=== PATIENT | female | born 1980 | race American Indian/Alaskan Native ===

== ENCOUNTER 2016-12-15 19:44 | Emergency (ER) | payer MEDICAID ==
[2016-12-15 20:49] VITALS: BP 154/99
[2016-12-16 00:32] LABS: Bacteria,Urine 1+ /HPF (Negative); Bilirubin,Urine NEG (Negative); Blood,Urine NEG (Negative); Ketones,Urine NEG (Negative); Leukocyte Esterase,Urine NEG (Negative); Mucus,Urine FEW /HPF; Nitrite,Urine NEG (Negative); Urobilinogen,Urine < 2.0 mg/dL (<2.0)
== END 2016-12-16 02:20 | disposition left against medical advice (07) ==
LOC: ED 19:44
DX: M79.606 Pain in leg, unspecified (principal); M79.603 Pain in arm, unspecified; M54.9 Dorsalgia, unspecified; R11.2 Nausea with vomiting, unspecified; Z53.21 Procedure and treatment not carried out due to patient leaving prior to being seen by health care provider
CPT/HCPCS: 81001

== ENCOUNTER 2016-12-24 13:30 | Inpatient (IN) | payer MEDICAID ==
[2016-12-24] MEDS ORDERED: MAGNESIUM SULFATE 2GM/50ML 2 GM/50 ML BAG IV ONE (15:09)
[2016-12-24] MEDS ORDERED: BENADRYL IV ONE ×3 (15:09→17:22)
[2016-12-24] MEDS ORDERED: NACL 0.9% 1000 ML 1,000 ML IV ONE (15:09)
[2016-12-24] MEDS ORDERED: MORPHINE IV ONE ×2 (15:23→17:06)
[2016-12-24 16:28] LABS: Anion Gap 19 mmol/L; Blood Urea Nitrogen 14 mg/dL (7-17); Calcium 8.9 mg/dL (8.4-10.2); Carbon Dioxide 23 mmol/L (22-30); Chloride 93.7 mmol/L (98-107); Glucose 489 mg/dL (65-100); Potassium 4.4 mmol/L (3.6-5.0); Sodium 131 mmol/L (137-145)
[2016-12-24 16:33] LABS: Basophils % (Auto) 0.2 % (0.0-1.8); Eosinophils % (Auto) 1.6 % (0.0-4.3); Hematocrit 33.6 % (30.3-42.9); Hemoglobin 10.7 gm/dl (10.1-14.3); Mean Corpuscular HGB Conc 32 % (30-34); Mean Corpuscular Volume 79 fl (79-97); Platelet Count 257 K/mm3 (140-440); Red Blood Count 4.26 M/mm3 (3.65-5.03); Red Cell Distribution Width 15.7 % (13.2-15.2); White Blood Count 12.2 K/mm3 (4.5-11.0)
[2016-12-24] MEDS ORDERED: NACL ONE (16:34)
[2016-12-24 16:35] LABS: Alanine Aminotransferase 12 units/L (7-56); Albumin 3.8 g/dL (3.9-5); Alkaline Phosphatase 83 units/L (35-129); Bilirubin,Total < 0.2 mg/dL (0.1-1.2); Lipase 48 units/L (13-60); Magnesium 1.8 mg/dL (1.7-2.3); Phosphorous 2.6 mg/dL (2.5-4.5); Total Protein 7.7 g/dL (6.3-8.2)
[2016-12-24 16:37] LABS: Mean Corpuscular Hemoglobin 25 pg (28-32)
--- NOTE | 2016-12-24 16:41 | Emergency Department Report ---
ED Chest Pain HPI - General Chief Complaint: Chest Pain Stated Complaint: CHEST PAIN Time Seen by Provider: 12/24/16 14:35 Source: patient, EMS Mode of arrival: Stretcher Limitations: No Limitations - History of Present Illness Initial Comments: Patient with multiple complaints. She states that she has been short of breath with a white productive sputum for the past 3 days. She states her chest hurts when she coughs and she has some dyspnea on exertion. She has chest pain in the substernal region which does not radiate and is not associated with nausea vomiting or sweating. This chest pain is not pleuritic per se. She states that she does have some leg pain but has done no recent traveling. She has no history of VTE. She has no known history of coronary artery disease either. Apparently the patient has had a CTA performed at another facility. She describes the doctor having to put an IV in her neck and injecting contrast. Apparently this test was negative. She states that her grandmother had a DVT. She does not report any fever or chills. She states she's had a stress test in the past but it was many years ago. She denies previous cardiac catheterization. She has a history of hypertension and insulin-dependent diabetes. Apparently she is very familiar with pain medication and antiemetics. She is requesting Phenergan IV and stating multiple drug allergies. The patient is allergic to Toradol and ibuprofen. However she states that she can take aspirin without any problem. Complaint: chest pain -: days(s) Onset: during rest Pain Location: substernal Pain Radiation: none Severity: moderate Quality: dull Consistency: intermittent Improves With: nothing Worsens With: other (worse with cough but not frankly pleuritic) re: dyspnea. denies: nausea, vomting, diaphoresis Other Symptoms: cough Treatments Prior to Arrival: none Aspirin use within the Past 7 Days: (0) No - Related Data On Oral Contraceptives: No Home Medications Medication Instructions Recorded Confirmed Last Taken Insulin Aspart [NovoLOG Flexpen] 30 units SQ AC 05/31/15 05/31/15 05/31/15 Insulin Glargine,Hum.rec.anlog 0 units SQ QHS 05/31/15 05/31/15 05/30/15 [Lantus Solostar] Lisinopril [Zestril TAB] 40 mg PO QDAY 05/31/15 05/31/15 05/31/15 amLODIPine [Norvasc] 10 mg PO DAILY 05/31/15 05/31/15 05/31/15 Previous Rx's Medication Instructions Recorded Last Taken Type Fluconazole [Diflucan TAB] 150 mg PO ONCE #1 tablet 05/31/15 Unknown Rx HYDROcodone/APAP 5-325 [[place] 1 each PO Q6HR PRN #12 tablet 05/31/15 Unknown Rx 5/325] ALBUTEROL Inhaler [Proair] 2 puff IH QID PRN #1 inhalation 09/02/16 Unknown Rx Amoxicillin [Trimox CAP] 500 mg PO BID #14 capsule 09/02/16 Unknown Rx Benzonatate [Tessalon Perles] 100 mg PO Q8HR #30 capsule 09/02/16 Unknown Rx Promethazine /Codeine 5 ml PO Q6H PRN #100 ml 09/02/16 Unknown Rx [Phenergan/Codeine 6.25-10 mg/5Ml] Oxycodone HCl/Acetaminophen 1 each PO Q6HR PRN #20 tablet 09/10/16 Unknown Rx [Percocet 10/325 mg] Promethazine [Phenergan SUPPOS] 25 mg MI Q6HR PRN #14 supp.rect 09/10/16 Unknown Rx Promethazine [Phenergan TAB] 25 mg PO Q6HR PRN #20 tab 09/10/16 Unknown Rx Allergies Allergy/AdvReac Type Severity Reaction Status Date / Time ibuprofen Allergy Angioedema Verified 07/05/14 17:22 ketorolac tromethamine Allergy Angioedema Verified 07/05/14 17:22 [From Toradol] metoclopramide HCl Allergy Angioedema Verified 09/09/16 20:43 [From Reglan] ondansetron HCl Allergy Angioedema Verified 07/05/14 17:22 [From Zofran (as hydrochloride)] PRIMO score - Primo Score Age > 65: (0) No Aspirin use within the Past 7 Days: (0) No 3 or more CAD Risk Factors: (1) Yes 2 or more Angina events in past 24 hrs: (0) No Known CAD with more than 50% Stenosis: (0) No Elevated Cardiac Markers: (0) No ST Deviation Greater than 0.5mm: (0) No PRIMO Score: 1 ED Review of Systems ROS: Stated complaint: CHEST PAIN Other details as noted in HPI Constitutional: denies: chills, fever Eyes: denies: eye pain, eye discharge, vision change ENT: denies: ear pain, throat pain Respiratory: cough, shortness of breath. denies: wheezing Cardiovascular: chest pain. denies: palpitations Endocrine: no symptoms reported Gastrointestinal: denies: abdominal pain, nausea, diarrhea Genitourinary: denies: urgency, dysuria, discharge Musculoskeletal: denies: back pain, joint swelling, arthralgia Skin: denies: rash, lesions Neurological: denies: headache, weakness, paresthesias Psychiatric: denies: anxiety, depression Hematological/Lymphatic: denies: easy bleeding, easy bruising ED Past Medical Hx - Past Medical History Previous Medical History?: Yes Hx Hypertension: Yes Hx Diabetes: Yes Hx Renal Disease: Yes (Stage II Kidney Failure) Additional medical history: high cholest - Surgical History Past Surgical History?: Yes Additional Surgical History: stent to kidney. Csection x4 - Social History Smoking Status: Current Every Day Smoker Substance Use Type: None - Medications Home Medications: Home Medications Medication Instructions Recorded Confirmed Last Taken Type Fluconazole [Diflucan TAB] 150 mg PO ONCE #1 tablet 05/31/15 Unknown Rx HYDROcodone/APAP 5-325 [[place] 1 each PO Q6HR PRN #12 tablet 05/31/15 Unknown Rx 5/325] Insulin Aspart [NovoLOG Flexpen] 30 units SQ AC 05/31/15 05/31/15 05/31/15 History Insulin Glargine,Hum.rec.anlog 0 units SQ QHS 05/31/15 05/31/15 05/30/15 History [Lantus Solostar] Lisinopril [Zestril TAB] 40 mg PO QDAY 05/31/15 05/31/15 05/31/15 History amLODIPine [Norvasc] 10 mg PO DAILY 05/31/15 05/31/15 05/31/15 History ALBUTEROL Inhaler [Proair] 2 puff IH QID PRN #1 inhalation 09/02/16 Unknown Rx Amoxicillin [Trimox CAP] 500 mg PO BID #14 capsule 09/02/16 Unknown Rx Benzonatate [Tessalon Perles] 100 mg PO Q8HR #30 capsule 09/02/16 Unknown Rx Promethazine /Codeine 5 ml PO Q6H PRN #100 ml 09/02/16 Unknown Rx [Phenergan/Codeine 6.25-10 mg/5Ml] Oxycodone HCl/Acetaminophen 1 each PO Q6HR PRN #20 tablet 09/10/16 Unknown Rx [Percocet 10/325 mg] Promethazine [Phenergan SUPPOS] 25 mg MI Q6HR PRN #14 supp.rect 09/10/16 Unknown Rx Promethazine [Phenergan TAB] 25 mg PO Q6HR PRN #20 tab 09/10/16 Unknown Rx ED Physical Exam - General Limitations: No Limitations General appearance: other (appearance is somewhat cushingoid) - Head Head exam: Present: atraumatic, normocephalic - Eye Eye exam: Present: normal appearance. Absent: scleral icterus - ENT ENT exam: Present: mucous membranes moist - Neck Neck exam: Present: normal inspection. Absent: tenderness, meningismus - Respiratory Respiratory exam: Present: normal lung sounds bilaterally. Absent: respiratory distress - Cardiovascular Cardiovascular Exam: Present: normal rhythm, tachycardia - GI/Abdominal GI/Abdominal exam: Present: soft, normal bowel sounds. Absent: distended, tenderness, guarding, rebound, rigid - Extremities Exam Extremities exam: Present: normal inspection, other (the right calf is a bit zaragoza than the left calf but it is not significantly tender) - Back Exam Back exam: Present: normal inspection. Absent: CVA tenderness (R), CVA tenderness (L) - Neurological Exam Neurological exam: Present: alert, oriented X3, CN II-XII intact. Absent: motor sensory deficit - Psychiatric Psychiatric exam: Present: anxious, flat affect - Skin Skin exam: Present: warm, dry, intact, normal color. Absent: rash ED Course Vital Signs 12/24/16 14:07 Temperature 98.6 F Pulse Rate 106 H Respiratory 20 Rate Blood Pressure 147/87 O2 Sat by Pulse 98 Oximetry - Reevaluation(s) Reevaluation #1: The patient's d-dimer came back significantly elevated. She has multiple risk factors for coronary artery disease and ulnar embolism. It was decided to treat her empirically. Intravenous access for CTA is not currently possible. A nuclear medicine study was obtained. This should be a sensitive exam considering her normal chest x-ray. She was given antiemetics fluids insulin and analgesia. She will be admitted by Dr. Barbosa to the hospitalist service further care and evaluation. Her EKG is not suggestive of acute ischemia. She is somewhat tachycardic at this juncture but her pulse oximetry is well maintained. 12/24/16 17:42 ED Medical Decision Making - Lab Data Result diagrams: 12/24/16 15:08 12/24/16 15:08 Laboratory Results - last 24 hr 12/24/16 12/24/16 12/24/16 15:08 15:08 15:54 WBC 12.2 H RBC 4.26 Hgb 10.7 Hct 33.6 MCV 79 MCH 25 L MCHC 32 RDW 15.7 H Plt Count 257 Lymph % (Auto) 15.1 Ida % (Auto) 5.3 Eos % (Auto) 1.6 Baso % (Auto) 0.2 Lymph # 1.8 Ida # 0.6 Eos # 0.2 Baso # 0.0 Seg Neutrophils % 77.8 H Seg Neutrophils # 9.5 H VBG pH Sodium 131 L Potassium 4.4 Chloride 93.7 L Carbon Dioxide 23 Anion Gap 19 BUN 14 Creatinine 1.0 Estimated GFR > 60 BUN/Creatinine Ratio 14.00 Glucose 489 H Lactic Acid Calcium 8.9 Phosphorus 2.6 Magnesium 1.8 Total Bilirubin < 0.2 AST 11 ALT 12 Alkaline Phosphatase 83 Troponin T < 0.010 NT-Pro-B Natriuret Pep 54.33 Total Protein 7.7 Albumin 3.8 L Albumin/Globulin Ratio 1.0 Lipase 48 12/24/16 12/24/16 15:54 15:54 WBC RBC Hgb Hct MCV MCH MCHC RDW Plt Count Lymph % (Auto) Ida % (Auto) Eos % (Auto) Baso % (Auto) Lymph # Ida # Eos # Baso # Seg Neutrophils % Seg Neutrophils # VBG pH 7.386 Sodium Potassium Chloride Carbon Dioxide Anion Gap BUN Creatinine Estimated GFR BUN/Creatinine Ratio Glucose Lactic Acid 2.1 H* Calcium Phosphorus Magnesium Total Bilirubin AST ALT Alkaline Phosphatase Troponin T NT-Pro-B Natriuret Pep Total Protein Albumin Albumin/Globulin Ratio Lipase - EKG Data EKG shows normal: sinus rhythm, axis, intervals, QRS complexes, ST-T waves Rate: tachycardia (heart rate 102) - EKG Data Interpretation: nonspecific ST-T wave margie - Radiology Data interpreted by me: Chest x-ray not indicative of evident pathology Critical care attestation.: If time is entered above; I have spent that time in minutes in the direct care of this critically ill patient, excluding procedure time. ED Disposition Clinical Impression: Elevated lactic acid level, Elevated d-dimer Chest pain Qualifiers: Chest pain type: unspecified Qualified Code(s): R07.9 - Chest pain, unspecified Hyperglycemia due to type 2 diabetes mellitus Qualifiers: Diabetes mellitus terminal worker insulin use: with custodial use Qualified Code(s): E11.65 - Type 2 diabetes mellitus with hyperglycemia; Z79.4 - prison (current ) use of insulin Disposition: OP ADMITTED IP TO THIS HOSP Is pt being admited?: Yes Does the pt Need Aspirin: Yes Condition: Stable Instructions: Chest Pain (ED), Diabetes Mellitus Type 2 in Adults (ED) Referrals: PRIMARY CARE, [Primary Care Provider] - 3-5 Days Time of Disposition: 17:44
[2016-12-24 16:44] LABS: Bilirubin,Direct < 0.2 mg/dL (0-0.2); INR 0.91 (0.87-1.13); Partial Thromboplastin Time 25.1 Sec. (24.2-36.6)
[2016-12-24] MEDS ORDERED: LEVAQUIN 500MG/100ML 500 MG/100 ML BAG IV ONE (16:49)
--- NOTE | 2016-12-24 16:55 | XRay Report ---
PORTABLE CHEST INDICATION: Hypertension. COMPARISON: 09/02/2016 FINDINGS: Portable, frontal chest radiograph demonstrates normal cardiomediastinal silhouette and clear lungs, given the inspiration. No pleural effusions or CHF. EKG leads. Intact bones. CONCLUSION: No acute disease. Thank you for the opportunity to participate in this patient's care.
[2016-12-24] MEDS ORDERED: BENADRYL ONE (17:13)
[2016-12-24] MEDS ORDERED: ATIVAN IV ONE (17:15)
[2016-12-24] MEDS ORDERED: LOVENOX SUB-Q ONE ×2 (17:16→18:00)
[2016-12-24] MEDS ORDERED: BABY ASPIRIN PO ONE (17:39)
[2016-12-24 17:44] LABS: Bacteria,Urine 1+ /HPF (Negative); Bilirubin,Urine NEG (Negative); Blood,Urine NEG (Negative); Ketones,Urine NEG (Negative); Leukocyte Esterase,Urine NEG (Negative); Mucus,Urine FEW /HPF; Nitrite,Urine NEG (Negative); Protein,Urine <15 mg/dL mg/dL (Negative); Urobilinogen,Urine < 2.0 mg/dL (<2.0)
[2016-12-24 17:59] LABS: Urine Drugs of Abuse Note Disclamer
--- NOTE | 2016-12-24 18:40 | History and Physical Report ---
History of Present Illness Chief complaint: I have pain in my chest History of present illness: 36 YO Female with HTN, DM, Metabolic Syndrome, Morbid Obesity, CKD 2, HLD, Nicotine Dependence presents to ED for evaluation. Pt states that she has been experiencing pain in her chest for the past 3 days. Pain is 4/10, substernal, nonradiating, no exacerbating or alleviating factors, intermittent. Pain is associated with coughing. Pt evaluated for PE and found to have negative CTA chest. Pt denies fever, chills, NVD, syncope, hemoptysis, prolonged travel/ immobility, individual/family history of DVT/PE, productive cough, or recent ill contacts. Past History Past Medical History: diabetes, hypertension, hyperlipidemia, renal failure Past Surgical History: , Other (renal stent placement) Social history: single, smoking. denies: alcohol abuse, prescription drug abuse Family history: diabetes, hypertension Medications and Allergies Allergies Allergy/AdvReac Type Severity Reaction Status Date / Time ibuprofen Allergy Angioedema Verified 07/05/14 17:22 ketorolac tromethamine Allergy Angioedema Verified 07/05/14 17:22 [From Toradol] metoclopramide HCl Allergy Angioedema Verified 09/09/16 20:43 [From Reglan] ondansetron HCl Allergy Angioedema Verified 07/05/14 17:22 [From Zofran (as hydrochloride)] levofloxacin [From Levaquin] AdvReac Nausea Verified 12/24/16 19:14 Home Medications Medication Instructions Recorded Confirmed Last Taken Type Insulin Glargine,Hum.rec.anlog 40 units SQ QHS 05/31/15 12/25/16 05/30/15 History [Lantus Solostar] Lisinopril [Zestril TAB] 40 mg PO QDAY 05/31/15 12/25/16 05/31/15 History amLODIPine [Norvasc] 10 mg PO DAILY 05/31/15 12/25/16 05/31/15 History ALBUTEROL Inhaler [Proair] 2 puff IH QID PRN #1 inhalation 09/02/16 12/25/16 Unknown Rx Insulin Regular, Human [HumuLIN R] 30 unit SQ AC 12/25/16 12/25/16 Unknown History cloNIDine [Catapres] 0.2 mg PO BID 12/25/16 12/25/16 Unknown History diphenhydrAMINE [Benadryl CAP] 25 mg PO QHS PRN 12/25/16 12/25/16 Unknown History Active Meds: Active Medications Sodium Chloride (Nacl 0.9% 1000 Ml) 1,000 mls @ 125 mls/hr IV ONCE ONE Stop: 12/24/16 23:08 Last Admin: 12/24/16 15:26 Dose: 125 mls/hr Review of Systems All systems: negative Cardiovascular: chest pain Exam - Constitutional Vitals: Temp Pulse Resp BP Pulse Ox 98.6 F 100 H 18 154/92 100 12/24/16 14:07 12/24/16 16:42 12/24/16 16:42 12/24/16 16:42 12/24/16 16:42 General appearance: Present: obese - EENT Eyes: Present: PERRL ENT: hearing intact, clear oral mucosa - Neck Neck: Present: supple, normal ROM - Respiratory Respiratory effort: normal Respiratory: bilateral: CTA - Cardiovascular Heart Sounds: Present: S1 & S2. Absent: rub, click - Extremities Extremities: pulses symmetrical, No edema Peripheral Pulses: within normal limits - Abdominal General gastrointestinal: Present: soft, non-tender, non-distended, normal bowel sounds Female genitourinary: Present: normal - Integumentary Integumentary: Present: clear, warm, dry - Musculoskeletal Musculoskeletal: gait normal, strength equal bilaterally - Psychiatric Psychiatric: appropriate mood/affect, intact judgment & insight - Neurologic Neurologic: CNII-XII intact, moves all extremities Results - Labs CBC & Chem 7: 12/24/16 15:08 12/24/16 15:08 Labs: Abnormal lab results 12/24/16 12/24/16 12/24/16 Range/Units 15:08 15:08 15:54 WBC 12.2 H (4.5-11.0) K/mm3 MCH 25 L (28-32) pg RDW 15.7 H (13.2-15.2) % Seg Neutrophils % 77.8 H (40.0-70.0) % Seg Neutrophils # 9.5 H (1.8-7.7) K/mm3 D-Dimer 928.63 H (0-234) ng/mlDDU Sodium 131 L (137-145) mmol/L Chloride 93.7 L (98-107) mmol/L Glucose 489 H (65-100) mg/dL Lactic Acid (0.7-2.0) mmol/L Albumin (3.9-5) g/dL 12/24/16 12/24/16 Range/Units 15:54 15:54 WBC (4.5-11.0) K/mm3 MCH (28-32) pg RDW (13.2-15.2) % Seg Neutrophils % (40.0-70.0) % Seg Neutrophils # (1.8-7.7) K/mm3 D-Dimer (0-234) ng/mlDDU Sodium (137-145) mmol/L Chloride (98-107) mmol/L Glucose (65-100) mg/dL Lactic Acid 2.1 H* (0.7-2.0) mmol/L Albumin 3.8 L (3.9-5) g/dL Assessment and Plan - Patient Problems (1) Chest pain Current Visit: Yes Status: Acute Qualifiers: Chest pain type: unspecified Qualified Code(s): R07.9 - Chest pain, unspecified Plan to address problem: Chest Pain protocol: serial cardiac enzymes, ekg, telemetry, echo, stress test (2) Accelerated hypertension Current Visit: Yes Status: Acute Plan to address problem: Monitor BP q shift, continue current antihypertensive therapy (3) Diabetes Current Visit: Yes Status: Acute Qualifiers: Diabetes mellitus type: D Diabetes mellitus complication status: D Diabetes mellitus complication detail: D Diabetic retinopathy severity: D Proliferative retinopathy type: P Diabetes mellitus macular edema: D Diabetes mellitus termite renewal inspector insulin use: D Laterality: L Chronic kidney disease stage: C Plan to address problem: ADA diet, insulin, accu check (4) Morbid obesity Current Visit: Yes Status: Acute Qualifiers: Obesity type: O Plan to address problem: Pt counseled. discussed balanced diet, increased physical activity, bariatric surgery as outpatient (5) Elevated d-dimer Current Visit: Yes Status: Acute Plan to address problem: VQ scan, (6) DVT prophylaxis Current Visit: Yes Status: Acute
[2016-12-24] MEDS ORDERED: TYLENOL PO PRN (18:44)
[2016-12-24] MEDS ORDERED: DULCOLAX PR PRN (18:44)
[2016-12-24] MEDS ORDERED: MILK OF MAGNESIA PO PRN (18:44)
[2016-12-24] MEDS ORDERED: ZOFRAN IV PRN (18:44)
[2016-12-24] MEDS ORDERED: ROCEPHIN/NS 1 GM/50 ML 1 GM/50 ML BAG IV ONE (18:45)
[2016-12-24] MEDS ORDERED: SODIUM CHLORIDE FLUSH SYRINGE 10 ML IV PRN (18:46)
[2016-12-24] MEDS ORDERED: PROAIR IH PRN (18:47)
[2016-12-24] MEDS ORDERED: NON-FORMULARY (Oxycodone Hcl/Acetaminophen [Percocet 10/325 Mg] 1 EACH) PO PRN (18:47)
--- NOTE | 2016-12-24 19:02 | Admit Criteria Form ---
Admission Criteria Documentation: CARDIOLOGY GRG Clinical Indications for Admission to Inpatient Care ( Place 'X' for any and all applicable criteria): Hospital admission is needed for appropriate care of the patient because of ANY ONE of the following (1): [ ] I. Hemodynamic instability as indicated by ALL of the following (1)(2)(3) (4)(5) [ ]a) Vital signs or other findings not as expected for chronic patient condition or baseline [ ]b) Instability indicated by ANY ONE of the following: [ ]i) Hypotension [ ]ii) Symptomatic Tachycardia unresponsive to treatment ( e.g., analgesia, fluids, sedation as indicated) [ ]iii) Inadequate perfusion indicated by ANY ONE of the following: [ ] 1) Lactic acidosis (> 2 mmol/L) [ ] 2) New abnormal capillary refill (> 3 seconds) [ ] 3) Reduced urine output [ ] 4) New altered mental status [ ]iv) Orthostatic vital sign changes unresponsive to treatment (e.g., fluids) [ ]v) IV inotropic or vasopressor medication required to maintain adequate blood pressure or perfusion [ ] II. Severe heart failure as indicated by ANY ONE of the following(17)(18) [ ]a) Respiratory distress [ ]b) Hypotension [ ]c) Anasarca (refractory to outpatient therapy) [ ]d) Cardiac arrhythmias of immediate concern [ ]e) Myocardial ischemia [ ] III. Cardiac arrhythmias or findings of immediate concern indicated by ANY ONE of the following (19)(20): [ ] a) Heart rhythms that are inherently dangerous or unstable indicated by ANY ONE of the following (21)(22)(23): [ ] i) Resuscitated ventricular fibrillation or cardiac arrest [ ] ii) Ventricular escape rhythm [ ] iii) Sustained ventricular tachycardia (30 seconds or more of ventricular rhythm at greater than 100 beats per minute) [ ] iv) Nonsustained ventricular tachycardia and ANY ONE of the following: [ ] 1) Suspected cardiac ischemia as cause or consequence of ventricular tachycardia [ ] 2) In setting of acute myocarditis [ ] b) Unstable cardiac conduction defects indicated by ANY ONE of the following(23)(24)(25) [ ] i) Type II second-degree atrioventricular block [ ]ii) Third-degree atrioventricular block [ ]iii) New-onset left bundle branch block with suspected myocardial ischemia [ ]c) Any heart rhythm and ANY ONE of the following (21)(22)(26)(27) (28) [ ] i) Continuous long-term ECG monitoring needed (e.g., initiation of drug requiring monitoring for more than 24 hours) [ ] ii) Patient has automatic implanted cardioverter defibrillator that is repeatedly firing, malfunctioning, or in need of immediate adjustment of settings beyond the scope of ambulatory or observation care [ ]d) Heart rhythms of concern due to ANY ONE of the following: [ ] i) Hypotension [ ] ii) Respiratory distress [ ] iii) Association with other significant symptoms (e.g., bradycardia with syncope or ongoing dizziness, supraventricular tachycardia with chest pain (14)(15)(17) [ ] IV. Monitoring for cardiac contusion beyond the scope of observation care needed [A](30)(31)(32) [ ] V. Surgical or device complication (e.g., valve replacement complication , pacemaker dysfunction) (35)(41)(44)(45)(46) [ ] . Inpatient palliative care needed. [B](49) Also use Inpatient Palliative Care Criteria [ ] VII. Nonbacterial thrombotic (marantic) endocarditis (36)(43)(47)(48) [X] VIII. Cardiology condition, symptom, or finding for which emergency and observation care has failed or are not considered appropriate. [ ] IX. Acute valvular disease requiring inpatient as indicated by ANY ONE of the following (41) [ ]a) Acute valvular regurgitation (42) [ ]b) Noninfectious valvulitis (43) [ ]c) Obstructive valve thrombosis [ ]d) Paravalvular leak [ ]e) Other significant valvular disorder remaining after emergency or observation level of care (as appropriate) [ ]X. Pericardial disease requiring inpatient treatment as indicated by ANY ONE of the following (33)(34)(35)(36)(37) [ ]a) Suspected tamponade (38)(39)(40) [ ]b) Hemopericardium [ ]c) Other significant pericardial disorder remaining after emergency or observation level of care (as appropriate) [ ] XI. Cardiac ischemia beyond scope of emergency and observation care. [ ] XII. Hypertension requiring inpatient treatment as indicated by ANY ONE of the following (6)(7)(8) [ ]a) SBP greater than 220 mm Hg or DBP greater than 120 mmHg despite treatment [ ]b) SBP greater than 140 mm Hg or DBP greater than 100 mm Hg with evidence of acute end organ damage as indicated by ANY ONE of the following [ ] i) Altered mental status [ ] ii) Acute renal failure as indicated by new onset of ANY ONE of the following (9)(10)(11)(12)(13) [ ]1) 3-fold rise in serum creatinine from baseline [ ]2) Serum creatinine greater than 4 mg/dL ( 354 micromoles/L) with acute rise greater than 0.5 mg/dL (44.2 micromoles/L) [ ]3) Reduction of more than 75% in estimated glomerular filtration rate from baseline [ ]4) Estimated glomerular filtration rate less than 35 mL/min/1.73m2 (0.59 mL/sec/1.73m2) in child up to 18 years of age [ ]5) Cessation of urine output indicated by ALL of the following [ ]A. Adequate volume status [ ]B. Inadequate urine output as indicated by ANY ONE of the following [ ]a. Urine output less than 0.3 mL/kg/hr for 24 hours [ ]b. Anuria (urine output less than 0.1 mL/kg/hr) for 12 hours [ ] iii) Aortic dissection [ ] iv) Myocardial Ischemia [ ] v) Left ventricular heart failure [ ]vi) Retinal Hemorrhage [ ]vii) Other significant finding [ ]c) Hypertension in child requiring inpatient treatment as indicated by ALL of the following(14)(15)(16) [ ] i) Outpatient treatment not effective, not available, or not appropriate [ ]ii) SBP or DBP greater than 95th percentile for age [ ]iii) Evidence of acute end organ damage as indicated by ANY ONE of the following [ ]1) Altered mental status [ ]2) Acute renal failure as indicated by new onset of ANY ONE of the following(9)(10)(11)(12)(13) [ ]A. 3-fold rise in serum creatinine from baseline [ ]B. Serum creatinine greater than 4 mg/dL (354 micromoles/L) with acute rise greater than 0.5 mg/dL (44.2 micromoles/L) [ ]C. Reduction of more than 75% in estimated glomerular filtration rate from baseline [ ]D. Estimated glomerular filtration rate less than 35 mL/min/1.73m2 (0.59 mL/sec/1.73m2) in child up to 18 years of age [ ]E. Cessation of urine output indicated by ALL of the following [ ]a. Adequate volume status [ ]b. Inadequate urine output as indicated by ANY ONE of the following [ ]i) Urine output less than 0.3 mL/kg/hr for 24 hours [ ]ii) Anuria ( urine output less than 0.1 mL/kg/hr) for 12 hours [ ]3) Severe headache [ ]4) Visual disturbance [ ]5) Retinal hemorrhage [ ]6) Other significant finding [ ]XIII. Complications of transplanted heart indicated by ANY ONE of the following(61): [ ]a) Acute graft rejection requiring inpatient management (eg, intravenous immunosuppression)(62)(63) [ ]b) Acute graft heart failure indicated by ANY ONE of the following(64): [ ]i) Hemodynamic instability [ ]ii) Cardiac arrhythmias of immediate concern [ ]iii) Pulmonary edema that is very severe (eg, mechanical ventilation needed, imminent or likely, need for 100% oxygen to keep oxygen saturation above 90%) [ ]iv) Pulmonary edema that is persistent as indicated by ALL of the following: [ ]1) New need for oxygen therapy to keep oxygen saturation above 90% (or increased FiO2 need from baseline) [ ]2) Has not improved sufficiently with emergency department or observation care IV diuretics or other heart failure treatments[E] [ ]v) Altered mental status that is severe or persistent [ ]vi) Increased creatinine (new on laboratory test) with reduction of more than 50% in estimated glomerular filtration rate from baseline [ ]vii) Progressively (ongoing) rising creatinine (known from past laboratory test) with reduction of more than 25% in estimated glomerular filtration rate from baseline [ ]viii) Acute renal failure [ ]ix) Acute peripheral ischemia (eg, examination shows pulseless, cool, mottled, or cyanotic extremity) [ ]x) Pulmonary artery catheter monitoring needed [ ]xi) Other sign or symptom of heart failure requiring inpatient treatment (ie, too severe or not responsive to outpatient and observation care treatment) [ ]c) Infection requiring inpatient management (eg, Hemodynamic instability, need for intravenous antimicrobial treatment)(66)(67)(68)(69)(70) [ ]d) Cardiac allograft vasculopathy requiring inpatient management ( eg evidence of cardiac ischemia)(71) [ ]e) Other complication of transplanted heart (eg, stroke, severe pulmonary hypertension, severe valvular dysfunction) requiring inpatient management(72) The original [facility] [employer] content created by [facility] has been revised. The portions of the content which have been revised are identified through the use of italic text or in bold, and [facility] has neither reviewed nor approved the modified material. All other unmodified content is copyright [facility] [employer]. Please see references footnoted in the original [facility] [employer] edition 2016 Admission Criteria Met: Yes
--- NOTE | 2016-12-24 19:23 | Nuclear Medicine Report ---
FINAL REPORT PROCEDURE: NM LUNG SCAN PERF/VENT TECHNIQUE: Five mCi Tc-99m MAA was injected IV for pulmonary perfusion imaging in multiple projections. Fifteen mCi XE_133 aerosol was inhaled for pulmonary ventilation imaging in multiple projections. Injection site: RIGHT antecubital fossa. CPT 31564 REGULATORY GUIDELINES: The patient was released based upon regulatory guidelines. HISTORY: Chest pain. COMPARISON: Chest radiograph dated 12/24/2016 FINDINGS: Perfusion: Uncertain whether related to patient positioning, moderate mismatch defect in the left lower lobe. Ventilation: Mild bibasilar air trapping. IMPRESSION: Possible moderate mismatch defect in the left lower lobe, V/Q scan intermediate probability for pulmonary embolism. Consider CT pulmonary embolism protocol for further characterization if there is continued clinical concern and if patient has no contraindication to intravenous contrast. Mild bibasilar air trapping.
[2016-12-24] MEDS ORDERED: PROVENTIL IH PRN (19:33)
[2016-12-24] MEDS ORDERED: PROVENTIL IH SCH (20:00)
[2016-12-24] MEDS ORDERED: PERCOCET 5/325 ONE (20:52)
[2016-12-24] MEDS: PERCOCET 5/325 PO PRN (20:58)
[2016-12-24] MEDS: NORCO 5/325 PO PRN (22:47)
[2016-12-24] MEDS: TESSALON PERLES PO SCH (22:47)
[2016-12-24] MEDS: PHENERGAN PO PRN (22:47)
[2016-12-24 22:49] LABS: Creatine Kinase 291 units/L (30-135); Creatine Kinase MB 2.9 ng/mL (0.0-4.0)
[2016-12-24] MEDS: HABITROL TD SCH (23:50)
[2016-12-25] MEDS: ROXICODONE PO PRN ×3 (01:53→17:53)
[2016-12-25] MEDS: PERCOCET 5/325 PO PRN ×3 (01:59→17:53)
[2016-12-25 02:32] LABS: Creatine Kinase MB 2.7 ng/mL (0.0-4.0)
[2016-12-25 02:33] LABS: Creatine Kinase 280 units/L (30-135)
[2016-12-25] MEDS: TESSALON PERLES PO SCH ×3 (05:21→22:12)
[2016-12-25] MEDS: NORCO 5/325 PO PRN ×3 (05:21→22:12)
[2016-12-25] MEDS: PHENERGAN PO PRN ×2 (05:21→22:12)
[2016-12-25] MEDS ORDERED: INSULIN ASPART 30 UNIT SQ SCH (07:30)
[2016-12-25] MEDS: NOVOLOG SUB-Q SCH ×3 (07:30→18:37)
[2016-12-25] MEDS ORDERED: NACL ONE ×3 (11:13→11:32)
--- NOTE | 2016-12-25 11:58 | Cat Scan Report ---
CTA chest: PE protocol. History: Elevated d-dimer. Findings: No evidence of aortic aneurysm or pulmonary embolism. No pleural or pericardial effusion. Normal lung parenchyma. No discrete nodularity or consolidation. Impression: No evidence of pulmonary embolism. No acute lung changes.
[2016-12-25] MEDS: ZESTRIL PO SCH (12:03)
[2016-12-25] MEDS: NORVASC PO SCH (12:03)
[2016-12-25] MEDS: MORPHINE IV PRN ×2 (13:47→20:36)
--- NOTE | 2016-12-25 14:17 | Progress Note ---
Assessment and Plan Assessment and plan: Patient is 1-year-old woman history of diabetes mellitus on insulin, hypertension, morbid obesity BMI 44.5 and significant plaque psoriasis who presented with chest pains. She underwent a VQ scan because unable to get IV line in the proper place for CTA of the chest because d-dimer was significantly elevated. Since she had a VQ scan she cannot undergo a nuclear stress test today. She had CTA of the chest which was negative for PE and acute lung disease. 2-D echo shows trace TR, severe concentric left ventricular hypertrophy , estimated EF 65-70% and abnormal diastolic filling is observed, consistent with impaired relaxation and Normal right chamber and function. - Low back pain: Check MRI of the LS-spine - Chest pain reproducible was like muscle skeletal - Significant plaque psoriasis, was on Otezla but not working, Humira going to be started soon per patient, which i believe will improve arthralgias - Diabetes mellitus: Continue present management MRI pending LS spine If Stress test negative tomorrow then discharged History Interval history: Patient seen and examined. Follow up on low back pain and difficulty walking. She is asking for something stronger for pain. Overnight uneventful. No cp, sob , n/v or severe headaches. Imaging, old records, testing, labs, nursing notes reviewed. Plan discussed with patient. Hospitalist Physical - Physical exam Narrative exam: GEN: Chronically debilitated woman NAD, AWAKE, ALERT, ORIENTATED 3 HEENT: NCAT, PERRL, EOMI, OP CLEAR NECK: SUPPLE, NO THYROMEGALY, NO JVD, NO LAD CVS: RRR, NORMAL S1S2 LUNGS/CHEST: CTA B, NORMAL CHEST EXPANSION B, GOOD AIR ENTRY B, reproducible chest wall tenderness ABD: SOFT NTND, GBS, NO REBOUND OR GUARDING EXT/SKIN: Significant psoriasis lower extremities, thorax and spine MSK: FROM X 4 EXTREMITIES NEURO: CN 2-12 GROSSLY INTACT, NO new FOCAL DEFICITS, negative straight leg raises, no paraspinal tenderness, gait tested she's limping on the left PSY: CALM - Constitutional Vitals: Temp Pulse Resp BP Pulse Ox 98.6 F 92 H 20 156/85 99 12/25/16 08:00 12/25/16 12:03 12/25/16 08:00 12/25/16 12:03 12/25/16 08:00 General appearance: Present: obese Results - Labs CBC & Chem 7: 12/24/16 15:08 12/24/16 15:08 Labs: Laboratory Last Values WBC 12.2 K/mm3 (4.5-11.0) H 12/24/16 15:08 RBC 4.26 M/mm3 (3.65-5.03) 12/24/16 15:08 Hgb 10.7 gm/dl (10.1-14.3) 12/24/16 15:08 Hct 33.6 % (30.3-42.9) 12/24/16 15:08 MCV 79 fl (79-97) 12/24/16 15:08 MCH 25 pg (28-32) L 12/24/16 15:08 MCHC 32 % (30-34) 12/24/16 15:08 RDW 15.7 % (13.2-15.2) H 12/24/16 15:08 Plt Count 257 K/mm3 (140-440) 12/24/16 15:08 Lymph % (Auto) 15.1 % (13.4-35.0) 12/24/16 15:08 Mclean % (Auto) 5.3 % (0.0-7.3) 12/24/16 15:08 Eos % (Auto) 1.6 % (0.0-4.3) 12/24/16 15:08 Baso % (Auto) 0.2 % (0.0-1.8) 12/24/16 15:08 Lymph # 1.8 K/mm3 (1.2-5.4) 12/24/16 15:08 Mclean # 0.6 K/mm3 (0.0-0.8) 12/24/16 15:08 Eos # 0.2 K/mm3 (0.0-0.4) 12/24/16 15:08 Baso # 0.0 K/mm3 (0.0-0.1) 12/24/16 15:08 Seg Neutrophils % 77.8 % (40.0-70.0) H 12/24/16 15:08 Seg Neutrophils # 9.5 K/mm3 (1.8-7.7) H 12/24/16 15:08 PT 12.2 Sec. (12.2-14.9) 12/24/16 15:54 INR 0.91 (0.87-1.13) 12/24/16 15:54 APTT 25.1 Sec. (24.2-36.6) 12/24/16 15:54 D-Dimer 928.63 ng/mlDDU (0-234) H 12/24/16 15:54 VBG pH 7.386 (7.320-7.420) 12/24/16 15:54 Sodium 131 mmol/L (137-145) L 12/24/16 15:08 Potassium 4.4 mmol/L (3.6-5.0) 12/24/16 15:08 Chloride 93.7 mmol/L (98-107) L 12/24/16 15:08 Carbon Dioxide 23 mmol/L (22-30) 12/24/16 15:08 Anion Gap 19 mmol/L 12/24/16 15:08 BUN 14 mg/dL (7-17) 12/24/16 15:08 Creatinine 1.0 mg/dL (0.7-1.2) 12/24/16 15:08 Estimated GFR > 60 ml/min 12/24/16 15:08 BUN/Creatinine Ratio 14.00 % 12/24/16 15:08 Glucose 489 mg/dL (65-100) H 12/24/16 15:08 POC Glucose 278 (70-105) H 12/25/16 13:44 Lactic Acid 2.1 mmol/L (0.7-2.0) H* 12/24/16 15:54 Calcium 8.9 mg/dL (8.4-10.2) 12/24/16 15:08 Phosphorus 2.6 mg/dL (2.5-4.5) 12/24/16 15:54 Magnesium 1.8 mg/dL (1.7-2.3) 12/24/16 15:54 Total Bilirubin < 0.2 mg/dL (0.1-1.2) 12/24/16 15:54 Direct Bilirubin < 0.2 mg/dL (0-0.2) 12/24/16 15:54 Indirect Bilirubin 0.0 mg/dL 12/24/16 15:54 AST 11 units/L (5-40) 12/24/16 15:54 ALT 12 units/L (7-56) 12/24/16 15:54 Alkaline Phosphatase 83 units/L (35-129) 12/24/16 15:54 Total Creatine Kinase 280 units/L (30-135) H 12/25/16 01:47 CK-MB (CK-2) 2.7 ng/mL (0.0-4.0) 12/25/16 01:47 CK-MB (CK-2) Rel Index 0.9 (0-4) 12/25/16 01:47 Troponin T < 0.010 ng/mL (0.00-0.029) 12/25/16 01:47 NT-Pro-B Natriuret Pep 54.33 pg/mL (0-450) 12/24/16 15:54 Total Protein 7.7 g/dL (6.3-8.2) 12/24/16 15:54 Albumin 3.8 g/dL (3.9-5) L 12/24/16 15:54 Albumin/Globulin Ratio 1.0 % 12/24/16 15:54 Triglycerides 221 mg/dL (2-149) H 12/24/16 19:42 Cholesterol 212 mg/dL (50-199) H 12/24/16 19:42 LDL Cholesterol Direct 127 mg/dL (50-130) 12/24/16 19:42 HDL Cholesterol 41 mg/dL (40-59) 12/24/16 19:42 Cholesterol/HDL Ratio 5.17 % 12/24/16 19:42 Lipase 48 units/L (13-60) 12/24/16 15:54 Urine Color Straw (Yellow) 12/24/16 16:49 Urine Turbidity Clear (Clear) 12/24/16 16:49 Urine pH 6.0 (5.0-7.0) 12/24/16 16:49 Ur Specific Parkman 1.028 (1.003-1.030) 12/24/16 16:49 Urine Protein <15 mg/dl mg/dL (Negative) 12/24/16 16:49 Urine Glucose (UA) >=500 mg/dL (Negative) 12/24/16 16:49 Urine Ketones Neg mg/dL (Negative) 12/24/16 16:49 Urine Blood Neg (Negative) 12/24/16 16:49 Urine Nitrite Neg (Negative) 12/24/16 16:49 Urine Bilirubin Neg (Negative) 12/24/16 16:49 Urine Urobilinogen < 2.0 mg/dL (<2.0) 12/24/16 16:49 Ur Leukocyte Esterase Neg (Negative) 12/24/16 16:49 Urine WBC (Auto) 1.0 /HPF (0.0-6.0) 12/24/16 16:49 Urine RBC (Auto) 1.0 /HPF (0.0-6.0) 12/24/16 16:49 U Epithel Cells (Auto) 5.0 /HPF (0-13.0) 12/24/16 16:49 Urine Bacteria (Auto) 1+ /HPF (Negative) 12/24/16 16:49 Urine Mucus Few /HPF 12/24/16 16:49 Urine HCG, Qual Negative (Negative) 12/24/16 16:49 Urine Opiates Screen Presumptive negative 12/24/16 16:49 Urine Methadone Screen Presumptive negative 12/24/16 16:49 Ur Barbiturates Screen Presumptive negative 12/24/16 16:49 Ur Phencyclidine Scrn Presumptive negative 12/24/16 16:49 Ur Amphetamines Screen Presumptive negative 12/24/16 16:49 U Benzodiazepines Scrn Presumptive negative 12/24/16 16:49 Urine Cocaine Screen Presumptive negative 12/24/16 16:49 U Marijuana (THC) Screen Presumptive negative 12/24/16 16:49 Drugs of Abuse Note Disclamer 12/24/16 16:49
[2016-12-25] MEDS: HABITROL TD SCH (22:12)
[2016-12-26] MEDS: MORPHINE IV PRN ×2 (04:00→12:11)
[2016-12-26] MEDS: TESSALON PERLES PO SCH (05:54)
[2016-12-26] MEDS: NOVOLOG SUB-Q SCH (07:30)
[2016-12-26] MEDS: ZESTRIL PO SCH (09:06)
[2016-12-26] MEDS: NORVASC PO SCH (09:06)
[2016-12-26] MEDS ORDERED: LEXISCAN IV ONE (09:37)
--- NOTE | 2016-12-26 10:32 | Discharge Summary ---
Providers - Providers Date of Admission: 12/24/16 18:44 Date of discharge: 12/26/16 Attending physician: GREG SMALLWOOD 12/24/16 Consult to Cardiac Rehabilitation [CONS] Routine Reason For Exam: Phase I Primary care physician: [employer] Hospitalization Reason for admission: cp, htn Condition: Stable Hospital course: Patient is 36-year-old woman with history of diabetes mellitus on insulin, hypertension, morbid obesity BMI 44.5 and significant plaque psoriasis who presented with chest pains. She had CTA of the chest which was negative for PE and acute lung disease. 2-D echo shows trace TR, severe concentric left ventricular hypertrophy, estimated EF 65-70% and abnormal diastolic filling is observed, consistent with impaired relaxation and Normal right chamber and function. Patient also complained of low back pain and underwent MRI and the results are pending. Chest pain was felt to be likely secondary to costochondritis given that the pain was reproducible with palpation on musculoskeletal exam. Dedicated discharge time 35 minutes. Disposition: STILL A PATIENT Core Measure Documentation - Palliative Care Palliative Care/ Comfort Measures: Not Applicable - Core Measures Any of the following diagnoses?: none Exam - Constitutional Vitals: Temp Pulse Resp BP Pulse Ox 98.4 F 86 18 159/85 97 12/26/16 05:42 12/26/16 05:42 12/26/16 05:42 12/26/16 09:06 12/26/16 05:42 General appearance: Present: no acute distress, well-nourished - EENT Eyes: Present: PERRL ENT: hearing intact, clear oral mucosa - Neck Neck: Present: supple, normal ROM - Respiratory Respiratory effort: normal Respiratory: bilateral: CTA - Cardiovascular Heart Sounds: Present: S1 & S2. Absent: rub, click - Extremities Extremities: pulses symmetrical, No edema Peripheral Pulses: within normal limits - Abdominal General gastrointestinal: Present: soft, non-tender, non-distended, normal bowel sounds Female genitourinary: Present: normal - Integumentary Integumentary: Present: clear, warm, dry - Musculoskeletal Musculoskeletal: gait normal, strength equal bilaterally - Psychiatric Psychiatric: appropriate mood/affect, intact judgment & insight - Neurologic Neurologic: CNII-XII intact, moves all extremities Plan Activity: no restrictions Weight Bearing Status: Weight Bear as Tolerated Diet: diabetic Follow up with: PRIMARY CARE, [Primary Care Provider] - 3-5 Days Prescriptions: Benzonatate [Tessalon Perles] 100 mg PO Q8HR #20 capsule oxyCODONE /ACETAMINOPHEN [Percocet 5/325 mg] 1 tab PO Q6H PRN #20 tablet PRN Reason: Pain, Moderate (4-6)
[2016-12-26 11:19] VITALS: BP 160/94
--- NOTE | 2016-12-26 13:38 | Treadmill Report ---
PROCEDURE: Single-isotope dual study myocardial perfusion scan. REFERRING PHYSICIAN: Dr. Randall Barbosa. DESCRIPTION OF PROCEDURE: The patient received 10 mCi of technetium-99m Myoview intravenously under resting condition. Resting myocardial perfusion scan was done. Subsequently, the patient underwent Lexiscan stress test as per the protocol. During Lexiscan stress test, the patient received 28 mCi of technetium-99m Myoview intravenously. After 30 to 60 minutes, post-stress images were done. Computerized reconstruction images were performed for analysis. The post-stress images revealed uniform distribution of the radiopharmaceutical in the left ventricular myocardium. Cinematic display of the gated study did not reveal any wall motion abnormality. The left ventricular ejection fraction was normal and was calculated to be 65%. The resting images did not reveal any perfusion abnormality. CONCLUSION: 1. No perfusion abnormality of the left ventricular myocardium was demonstrated in the resting as well as stress images obtained after the patient underwent Lexiscan stress test. 2. No wall motion abnormality. 3. Normal left ventricular ejection fraction of 65%. [facility]# [id number] [facility]
--- NOTE | 2016-12-26 16:56 | Magnetic Resonance Report ---
FINAL REPORT PROCEDURE: MR LUMBAR SPINE WO CON TECHNIQUE: Sagittal T1, T2, stir, and axial T1 and T2 weighted images of the lumbar spine are submitted for review. HISTORY: low back pain COMPARISON: None FINDINGS: The conus is normally positioned. There is no clumping of nerve roots to suggest arachnoiditis. There is no pial or epidural abnormality. Best appreciated on STIR is dependent edema within the midline posterior subcutaneous fat. There is no loculated fluid collection to suggest abscess or cystic lesion. There is no solid lesion. The visualized portions of the liver, spleen, and adrenal glands are normal. Few T2 hyperintensities are present of the right kidney the largest of which is 8.5 millimeters. All vertebral bodies demonstrate normal height, alignment, and signal intensity. There is no suspected nondisplaced microfracture, blastic or lytic lesion. There is no avulsion injury. There is no acute tear of the anterior or posterior longitudinal or interspinous ligaments. Intervertebral discs demonstrate normal height and hydration. There is no disc bulge or herniation. There is no central canal or neural foraminal stenosis at any level. The facet joints are intact. IMPRESSION: Midline dependent edema within the subcutaneous fat posteriorly. No focal osseous abnormality, disc herniation, central canal or foraminal stenosis. Few sub centimeter T2 hyperintensities of the right kidney likely benign cysts. If not known benign cysts may be proved with renal ultrasound.
== END 2016-12-26 13:54 | disposition home or self-care (01) | DRG 206 ==
LOC: ED 13:30 → 4A 18:44
PROVIDERS: ADMIT Internal Medicine; ATTEND Hospitalist
DX: M94.0 Chondrocostal junction syndrome [Tietze] (principal); E11.65 Type 2 diabetes mellitus with hyperglycemia; R79.1 Abnormal coagulation profile; E66.01 Morbid (severe) obesity due to excess calories; Z68.41 Body mass index [BMI] 40.0-44.9, adult; I12.9 Hypertensive chronic kidney disease with stage 1 through stage 4 chronic kidney disease, or unspecified chronic kidney disease; N18.2 Chronic kidney disease, stage 2 (mild); E11.22 Type 2 diabetes mellitus with diabetic chronic kidney disease; E78.00 Pure hypercholesterolemia, unspecified; F17.200 Nicotine dependence, unspecified, uncomplicated; E88.81 Metabolic syndrome and other insulin resistance; E78.5 Hyperlipidemia, unspecified; Z83.3 Family history of diabetes mellitus; Z79.4 Long term (current) use of insulin; Z79.899 Other long term (current) drug therapy; Z88.8 Allergy status to other drugs, medicaments and biological substances; Z82.49 Family history of ischemic heart disease and other diseases of the circulatory system
CPT/HCPCS: 36415; 71010; 71275; 72148; 78452; 78582; 80048; 80061; 80074; 80307; 81001; 81025; 82010; 82140; 82550; 82553; 82805; 82962; 83690; 83735; 83880; 84100; 84484; 85025; 85379; 85610; 85730; 87040; 87086; 93005; 93010; 93017; 93306; 96361; 96365; 96372; 96375; 96376; 99406; A9502; A9540; A9558; J0696; J1200; J1650; J1815; J1956; J2060; J2270; J2785; J7030; Q0169; Q9967

== ENCOUNTER 2017-12-02 08:39 | Emergency (ER) | payer MEDICAID ==
[2017-12-02 09:49] LABS: Hematocrit 37.8 % (30.3-42.9); Hemoglobin 12.6 gm/dl (10.1-14.3); Mean Corpuscular HGB Conc 33 % (30-34); Mean Corpuscular Hemoglobin 27 pg (28-32); Mean Corpuscular Volume 81 fl (79-97); Platelet Count 287 K/mm3 (140-440); Red Blood Count 4.65 M/mm3 (3.65-5.03); Red Cell Distribution Width 15.5 % (13.2-15.2)
[2017-12-02 09:54] LABS: Alanine Aminotransferase 18 units/L (7-56); Albumin 3.5 g/dL (3.9-5); BUN/Creatinine Ratio 17; Blood Urea Nitrogen 15 mg/dL (7-17); Calcium 8.9 mg/dL (8.4-10.2); Hemolysis Index 61
[2017-12-02 10:10] LABS: HCG Qualitative,Urine Negative (Negative)
[2017-12-02 10:12] LABS: Bacteria,Urine 1+ /HPF (Negative); Bilirubin,Urine NEG (Negative); Blood,Urine NEG (Negative); Color,Urine Yellow (Yellow); Mucus,Urine FEW /HPF; Protein,Urine <15 mg/dL mg/dL (Negative); Urobilinogen,Urine < 2.0 mg/dL (<2.0)
[2017-12-02] MEDS ORDERED: NACL 0.9% 1000 ML 1,000 ML IV ONE ×2 (10:53→14:50)
[2017-12-02] MEDS ORDERED: SUBLIMAZE IV ONE ×2 (12:40→13:00)
[2017-12-02] MEDS ORDERED: PHENERGAN PO ONE (12:43)
--- NOTE | 2017-12-02 12:53 | Emergency Department Report ---
HPI - General Chief Complaint: Abdominal Pain Time Seen by Provider: 12/02/17 10:52 - HPI HPI: The patient is a 37-year-old female with a history of diabetes and chronic back and abdominal pain, who presents for evaluation of reoccurrence of abdominal pain and back pain. The patient reports bilateral lower abdominal pain and lower back pain for the past one day, constant since onset, 10/10 in severity, crampy in quality, exacerbated with movement. The patient denies fever, chills, night sweats, trauma to the back or abdomen, vomiting, diarrhea, blood in the stool, dark tarry stool, dysuria, hematuria, flank pain, genital discharge, inability to pass flatus, paresthesias or motor deficits in the extremities, urine or bowel incontinence or retention, saddle anesthesia. ED Past Medical Hx - Past Medical History Hx Hypertension: Yes Hx Heart Attack/AMI: No Hx Congestive Heart Failure: No Hx Diabetes: Yes Hx Deep Vein Thrombosis: No Hx Liver Disease: No Hx Renal Disease: Yes Hx Sickle Cell Disease: No Hx Arthritis: No Hx Kidney Stones: No Hx Asthma: No Hx COPD: No Hx HIV: No Additional medical history: high cholest - Surgical History Hx Coronary Stent: No Hx Open Heart Surgery: No Hx Pacemaker: No Hx Internal Defibrillator: No Hx Cholecystectomy: No Hx Appendectomy: No Hx Breast Surgery: No Additional Surgical History: stent to kidney. Csection x4 - Social History Smoking Status: Current Every Day Smoker Substance Use Type: None - Medications Home Medications: Home Medications Medication Instructions Recorded Confirmed Last Taken Type Insulin Glargine,Hum.rec.anlog 40 units SQ QHS 05/31/15 12/25/16 05/30/15 History [Lantus Solostar] Lisinopril [Zestril TAB] 40 mg PO QDAY 05/31/15 12/25/16 05/31/15 History amLODIPine [Norvasc] 10 mg PO DAILY 05/31/15 12/25/16 05/31/15 History ALBUTEROL Inhaler [ProAir HFA 2 puff IH QID PRN #1 inhalation 09/02/16 12/25/16 Unknown Rx Inhaler] Insulin Regular, Human [HumuLIN R] 30 unit SQ AC 12/25/16 12/25/16 Unknown History cloNIDine [Catapres] 0.2 mg PO BID 12/25/16 12/25/16 Unknown History diphenhydrAMINE [Benadryl CAP] 25 mg PO QHS PRN 12/25/16 12/25/16 Unknown History Benzonatate [Tessalon Perles] 100 mg PO Q8HR #20 capsule 12/26/16 Unknown Rx Cephalexin [Keflex] 500 mg PO QID #30 capsule 12/02/17 Unknown Rx Sulfamethoxazole/Trimethoprim 1 each PO BID #20 tablet 12/02/17 Unknown Rx [Bactrim DS TAB] traMADol [Ultram 50 MG tab] 50 mg PO Q6HR PRN #15 tablet 12/02/17 Unknown Rx ED Review of Systems ROS: Stated complaint: PAIN Other details as noted in HPI Constitutional: denies: fever ENT: denies: throat or neck pain Respiratory: denies: cough, shortness of breath Cardiovascular: denies: chest pain Endocrine: denies unexplained weight loss or gain Gastrointestinal: reports abdominal pain, nausea Genitourinary: denies: dysuria Musculoskeletal: reports denies: leg swelling Skin: denies: rash Neurological: denies: headache Hematological/Lymphatic: denies: easy bleeding or easy bruising Psych: denies sadness or hopelessness Physical Exam - Physical Exam Vital Signs: Vital Signs 12/02/17 12/02/17 09:07 11:55 Temperature 98.1 F 98.3 F Pulse Rate 103 H 113 H Respiratory 20 23 Rate Blood Pressure 148/100 Blood Pressure 147/91 [Left] O2 Sat by Pulse 94 99 Oximetry Physical Exam: General: well-nourished, well-developed, no acute distress Head: Normocephalic, atraumatic Eyes: normal sclera ENT: Mucous membranes are pale and dry Neck: No neck stiffness, no cervical adenopathy Respiratory: Breath sounds equal bilaterally, no wheezing, rales, or rhonchi Cardio: S1 and S2 present, no murmurs, rubs, gallops, capillary refill is delayed Abdomen: Normoactive bowel sounds, soft abdomen, bilateral lower quadrant tenderness to palpation present, no rigidity, no guarding or rebound tenderness Chest WALL/Back: No tenderness to palpation of the chest wall, Tenderness to palpation present to bilateral lumbar paraspinal musculature, normal active range of motion at the hip intact, no spinous step-off or obvious deformity, ipsi-lateral and contralateral straight leg raise tests are negative. On extremity testing, compartments are soft and pliable, no obvious gross motor strength deficit, 5+ motor strength, including extension of the great toe bilaterally, no muscular atrophy, spasticity, fasciculations, or clonus, no obvious gross sensation deficit including web space between 1st and 2nd toes, reflexes 2+ & symmetric on DTR testing at the knee and ankle joints, distal pulses intact. Musc: No pitting edema Skin: No rash Neuro: no facial drooping, normal speech Psych: Normal affect ED Course Vital Signs 12/02/17 12/02/17 09:07 11:55 Temperature 98.1 F 98.3 F Pulse Rate 103 H 113 H Respiratory 20 23 Rate Blood Pressure 148/100 Blood Pressure 147/91 [Left] O2 Sat by Pulse 94 99 Oximetry ED Medical Decision Making - Lab Data Result diagrams: 12/02/17 09:28 12/02/17 09:27 - Medical Decision Making The patient was seen and examined by myself. The patient is placed on a monitoring engineer and continuous pulse ox. On initial evaluation, the patient was found to be in no distress. Evaluation orders were placed. The patient is given normal saline fluid bolus for dehydration and hyperglycemia, by mouth Phenergan for nausea, and IV analgesia for her pain. Lab results revealed elevated glucose level of 308, with normal bicarbonate, and normal anion gap, not consistent with DKA. The patient is given IV insulin for treatment of her hypoxemia. The patient was reevaluated and found to remain tachycardic. The patient was in formed of plan to provide further fluid resuscitation for txt of the patient's persistent tachycardia. The patient stated that she would like to be discharged as she needs to pick her child from school. Further resuscitation is recommended to the patient she requests to sign AGAINST MEDICAL ADVICE. The patient is informed of risks of refusal of further care/ stabilization and signing out AGAINST MEDICAL ADVICE, including potential risk of increased morbidity and/or , versus benefits of further treatment and stablization. The patient is informed of treatment options and outside facility options for futher treatment and definitive stablization. The patient is able to verbalize their treatment options and benefits of treatments, versus risks of refusal of further care. The patient is competent to make medical decisions and signed out AGAINST MEDICAL ADVICE. Critical care attestation.: If time is entered above; I have spent that time in minutes in the direct care of this critically ill patient, excluding procedure time. ED Disposition Clinical Impression: Acute hyperglycemia, Dehydration, Acute bilateral lower abdominal pain, Acute bilateral low back pain without sciatica, Axillary adenitis Disposition: LEFT AGAINST MED ADVICE Is pt being admited?: No Does the pt Need Aspirin: No Condition: Serious Instructions: Abdominal Pain (ED), Back Pain (ED), Adenitis (ED) Prescriptions: Cephalexin [Keflex] 500 mg PO QID #30 capsule Sulfamethoxazole/Trimethoprim [Bactrim DS TAB] 1 each PO BID #20 tablet traMADol [Ultram 50 MG tab] 50 mg PO Q6HR PRN #15 tablet PRN Reason: Pain Referrals: PRIMARY CARE, [Primary Care Provider] - 3-5 Days Time of Disposition: 12:49
[2017-12-02 15:13] VITALS: BP 146/96
== END 2017-12-02 15:13 | disposition left against medical advice (07) ==
LOC: ED 08:39
DX: E11.65 Type 2 diabetes mellitus with hyperglycemia (principal); E86.0 Dehydration; M54.5 Low back pain; R10.31 Right lower quadrant pain; R10.32 Left lower quadrant pain; I88.9 Nonspecific lymphadenitis, unspecified; I10 Essential (primary) hypertension; E78.00 Pure hypercholesterolemia, unspecified; F17.200 Nicotine dependence, unspecified, uncomplicated; Z88.6 Allergy status to analgesic agent; Z88.8 Allergy status to other drugs, medicaments and biological substances
CPT/HCPCS: 36415; 80053; 81001; 81025; 82962; 85027; 96361; 96374; 96375; 99284; J3010; J7030; J1815; Q0169

== ENCOUNTER 2019-06-26 15:13 | Emergency (ER) | payer MEDICAID ==
[2019-06-26] MEDS ORDERED: NACL 0.9% 1000 ML 1,000 ML IV ONE (15:38)
[2019-06-26] MEDS ORDERED: MORPHINE IV ONE (15:38)
[2019-06-26 15:41] LABS: Basophils % (Auto) 0.3 % (0.0-1.8); Eosinophils # (Auto) 0.2 K/mm3 (0.0-0.4); Eosinophils % (Auto) 1.6 % (0.0-4.3); Hematocrit 42.6 % (30.3-42.9); Hemoglobin 14.4 gm/dl (10.1-14.3); Lymphocytes % (Auto) 15.8 % (13.4-35.0); Mean Corpuscular HGB Conc 34 % (30-34); Mean Corpuscular Volume 86 fl (79-97); Monocytes # (Auto) 0.8 K/mm3 (0.0-0.8); Monocytes % (Auto) 6.1 % (0.0-7.3); Platelet Count 276 K/mm3 (140-440); Red Blood Count 4.93 M/mm3 (3.65-5.03); Red Cell Distribution Width 13.6 % (13.2-15.2)
--- NOTE | 2019-06-26 15:41 | Emergency Department Report ---
ED Abdominal Pain HPI - General Chief Complaint: Abdominal Pain Stated Complaint: R FLANK PAIN/DIFFICULTY URINATING Time Seen by Provider: 06/26/19 15:29 Source: patient, EMS Mode of arrival: Stretcher Limitations: No Limitations - History of Present Illness Initial Comments: 39-year-old female with history of diabetes, hypertension, kidney stones, pres ents to ED with right flank pain 3 days. Patient reports associated nausea, vomiting, difficulty urinating as well. Patient denies fever. Patient reports history of ureteral stents placed at [place] several years ago. MD Complaint: flank pain -: days(s) (3) Location: R flank Severity: severe Quality: sharp Consistency: constant Improves With: nothing Worsens With: nothing Associated Symptoms: nausea, vomiting, dysuria. denies: fever - Related Data Home Medications Medication Instructions Recorded Confirmed Last Taken Insulin Glargine,Hum.rec.anlog 40 units SQ QHS 05/31/15 12/25/16 05/30/15 [Lantus Solostar] Lisinopril [Zestril TAB] 40 mg PO QDAY 05/31/15 12/25/16 05/31/15 amLODIPine [Norvasc] 10 mg PO DAILY 05/31/15 12/25/16 05/31/15 Insulin Regular, Human [HumuLIN R] 30 unit SQ AC 12/25/16 12/25/16 Unknown cloNIDine [Catapres] 0.2 mg PO BID 12/25/16 12/25/16 Unknown diphenhydrAMINE [Benadryl CAP] 25 mg PO QHS PRN 12/25/16 12/25/16 Unknown Previous Rx's Medication Instructions Recorded Last Taken Type ALBUTEROL Inhaler (OR & NICU) 2 puff IH QID PRN #1 inhalation 09/02/16 Unknown Rx [ProAir HFA Inhaler] Benzonatate [Tessalon Perles] 100 mg PO Q8HR #20 capsule 12/26/16 Unknown Rx Sulfamethoxazole/Trimethoprim 1 each PO BID #20 tablet 12/02/17 Unknown Rx [Bactrim DS TAB] cephALEXin [Keflex] 500 mg PO QID #30 capsule 12/02/17 Unknown Rx traMADol [Ultram 50 MG tab] 50 mg PO Q6HR PRN #15 tablet 12/02/17 Unknown Rx Allergies Allergy/AdvReac Type Severity Reaction Status Date / Time ibuprofen Allergy Angioedema Verified 07/05/14 17:22 ketorolac tromethamine Allergy Angioedema Verified 07/05/14 17:22 [From Toradol] metoclopramide HCl Allergy Angioedema Verified 09/09/16 20:43 [From Reglan] ondansetron HCl Allergy Angioedema Verified 07/05/14 17:22 [From Zofran (as hydrochloride)] levofloxacin [From Levaquin] AdvReac Nausea Verified 12/24/16 19:14 ED Review of Systems ROS: Stated complaint: R FLANK PAIN/DIFFICULTY URINATING Other details as noted in HPI Comment: All other systems reviewed and negative Constitutional: denies: chills, fever Gastrointestinal: abdominal pain, nausea, vomiting Genitourinary: other (reports difficulty urinating) ED Past Medical Hx - Past Medical History Previous Medical History?: Yes Hx Hypertension: Yes Hx Heart Attack/AMI: No Hx Congestive Heart Failure: No Hx Diabetes: Yes Hx Deep Vein Thrombosis: No Hx Liver Disease: No Hx Renal Disease: Yes Hx Sickle Cell Disease: No Hx Arthritis: No Hx Kidney Stones: Yes Hx Asthma: No Hx COPD: No Hx HIV: No Additional medical history: high cholest - Surgical History Past Surgical History?: Yes Hx Coronary Stent: No Hx Open Heart Surgery: No Hx Pacemaker: No Hx Internal Defibrillator: No Hx Cholecystectomy: No Hx Appendectomy: No Hx Breast Surgery: No Additional Surgical History: stent to kidney. Csection x4 - Social History Smoking Status: Unknown if ever smoked Substance Use Type: Alcohol - Medications Home Medications: Home Medications Medication Instructions Recorded Confirmed Last Taken Type Insulin Glargine,Hum.rec.anlog 40 units SQ QHS 05/31/15 12/25/16 05/30/15 History [Lantus Solostar] Lisinopril [Zestril TAB] 40 mg PO QDAY 05/31/15 12/25/16 05/31/15 History amLODIPine [Norvasc] 10 mg PO DAILY 05/31/15 12/25/16 05/31/15 History ALBUTEROL Inhaler (OR & NICU) 2 puff IH QID PRN #1 inhalation 09/02/16 12/25/16 Unknown Rx [ProAir HFA Inhaler] Insulin Regular, Human [HumuLIN R] 30 unit SQ AC 12/25/16 12/25/16 Unknown History cloNIDine [Catapres] 0.2 mg PO BID 12/25/16 12/25/16 Unknown History diphenhydrAMINE [Benadryl CAP] 25 mg PO QHS PRN 12/25/16 12/25/16 Unknown History Benzonatate [Tessalon Perles] 100 mg PO Q8HR #20 capsule 12/26/16 Unknown Rx Sulfamethoxazole/Trimethoprim 1 each PO BID #20 tablet 12/02/17 Unknown Rx [Bactrim DS TAB] cephALEXin [Keflex] 500 mg PO QID #30 capsule 12/02/17 Unknown Rx traMADol [Ultram 50 MG tab] 50 mg PO Q6HR PRN #15 tablet 12/02/17 Unknown Rx ED Physical Exam - General Limitations: No Limitations General appearance: alert - Head Head exam: Present: atraumatic, normocephalic - Eye Eye exam: Present: normal appearance - ENT ENT exam: Present: mucous membranes moist - Neck Neck exam: Present: normal inspection - Respiratory Respiratory exam: Present: normal lung sounds bilaterally. Absent: respiratory distress - Cardiovascular Cardiovascular Exam: Present: normal rhythm, tachycardia - GI/Abdominal GI/Abdominal exam: Present: soft, tenderness. Absent: distended - Extremities Exam Extremities exam: Present: normal inspection - Back Exam Back exam: Present: CVA tenderness (R) - Neurological Exam Neurological exam: Present: alert, oriented X3 - Psychiatric Psychiatric exam: Present: anxious - Skin Skin exam: Present: warm, dry, intact, normal color ED Course Vital Signs 06/26/19 06/26/19 06/26/19 15:15 15:27 16:11 Temperature 97.7 F Pulse Rate 120 H 108 H Respiratory 22 20 Rate Blood Pressure 199/108 180/98 [Left] O2 Sat by Pulse 100 100 Oximetry - Reevaluation(s) Reevaluation #1: 06/26/19 16:02 Pt states she wants to leave because she is not getting the medication that she needs for her kidneys. When asked what medication, pt refuses to answer. Significant other at bedside ready to take patient. Morphine and IV fluids were ordered for patient. ED Medical Decision Making - Lab Data Result diagrams: 06/26/19 15:31 06/26/19 15:31 Critical care attestation.: If time is entered above; I have spent that time in minutes in the direct care of this critically ill patient, excluding procedure time. ED Disposition Clinical Impression: Nausea and vomiting, Abdominal pain Disposition: DC-07 LEFT AGAINST MED ADVICE Is pt being admited?: No Condition: Stable Instructions: Abdominal Pain (ED) Forms: AMA Form Time of Disposition: 16:02
[2019-06-26 16:01] LABS: Bilirubin,Urine NEG (Negative); Blood,Urine MOD (Negative); Color,Urine Yellow (Yellow); Urobilinogen,Urine < 2.0 mg/dL (<2.0)
[2019-06-26 16:03] LABS: WBC,Urine > 182.0 /HPF (0.0-6.0)
[2019-06-26 16:05] LABS: Alanine Aminotransferase 15 units/L (7-56); Albumin 4.1 g/dL (3.9-5); BUN/Creatinine Ratio 13; Blood Urea Nitrogen 16 mg/dL (7-17); Calcium 9.4 mg/dL (8.4-10.2); Hemolysis Index 6
[2019-06-26 16:07] LABS: Bilirubin,Direct < 0.2 mg/dL (0-0.2)
[2019-06-26 16:12] VITALS: BP 180/98
== END 2019-06-26 16:11 | disposition left against medical advice (07) ==
LOC: ED 15:13
DX: R10.9 Unspecified abdominal pain (principal); R11.2 Nausea with vomiting, unspecified; R30.0 Dysuria; I10 Essential (primary) hypertension; E11.9 Type 2 diabetes mellitus without complications; N28.9 Disorder of kidney and ureter, unspecified; E78.00 Pure hypercholesterolemia, unspecified; Z87.442 Personal history of urinary calculi; Z79.899 Other long term (current) drug therapy; Z79.4 Long term (current) use of insulin; Z88.6 Allergy status to analgesic agent; Z88.8 Allergy status to other drugs, medicaments and biological substances
CPT/HCPCS: 36415; 51702; 80048; 80076; 81001; 83690; 84703; 85025; 96361; 96374; 99284; J2270; J7030; 51701

== ENCOUNTER 2021-06-29 21:28 | Emergency (ER) | payer MEDICAID ==
[2021-06-29 23:50] LABS: Bacteria,Urine 2+ /HPF (Negative); Bilirubin,Urine NEG (Negative); Blood,Urine NEG (Negative); Color,Urine Yellow (Yellow)
[2021-06-29 23:59] VITALS: BP 165/104
--- NOTE | 2021-06-30 01:03 | Emergency Department Report ---
ED Extremity Problem HPI - General Chief complaint: Extremity Injury, Lower Stated complaint: ABDOMINAL AND BACK PAIN/RT LEG PAIN Source: patient Mode of arrival: Ambulatory Limitations: No Limitations - History of Present Illness Initial comments: Patient is a 41-year-old -[place] female with a history of hypertension, nlm-avbhsrp-[id number] diabetes, kidney stones and hyperlipidemia who presented to the ED with complaint of acute onset persistent low back pain that radiates to the right leg, suprapubic pain, urinary frequency and urgency, dysuria for the last 1 week. Patient states that she has been taking antibiotics for recently diagnosed urinary tract infection but the pain in her lower back radiates to the right leg causing significant pain on the right thigh. Patient denies fall, traumatic injury, fever, chills, nausea and vomiting, dizziness, syncope, heavy lifting, numbness and tingling or weakness of lower extremities bilaterally or neck pain, chest pain or shortness of breath. MD Complaint: extremity pain (right thigh pain) -: Sudden, week(s) (1) Location: lower extremity (right thigh), other (lower) History of Same: Yes -: Yes arthralgia, No fever, No associated dyspnea, No associated chest pain Radiation: distal Severity scale (0 -10): 7 Quality: aching, sharp Improves with: nothing Worsens with: weight bearing, walking, exertion, palpation Associated Symptoms: denies other symptoms, arthralgias. denies: chest pain, shortness of breath, fever, myalgias, rash - Related Data Home Medications Medication Instructions Recorded Confirmed Last Taken Insulin Glargine,Hum.rec.anlog 40 units SQ QHS 05/31/15 12/25/16 05/30/15 [Lantus Solostar] amLODIPine 10 mg PO DAILY 05/31/15 12/25/16 05/31/15 lisinopriL [Zestril TAB] 40 mg PO QDAY 05/31/15 12/25/16 05/31/15 Insulin Regular, Human [HumuLIN R] 30 unit SQ AC 12/25/16 12/25/16 Unknown cloNIDine [Catapres] 0.2 mg PO BID 12/25/16 12/25/16 Unknown diphenhydrAMINE [Benadryl CAP] 25 mg PO QHS PRN 12/25/16 12/25/16 Unknown Previous Rx's Medication Instructions Recorded Last Taken Type Albuterol Mdi (or & Nicu Only) 2 puff IH QID PRN #1 inhalation 09/02/16 Unknown Rx [ProAir HFA Inhaler] Benzonatate [Tessalon Perles] 100 mg PO Q8HR #20 capsule 12/26/16 Unknown Rx Sulfamethoxazole/Trimethoprim 1 each PO BID #20 tablet 12/02/17 Unknown Rx [Bactrim DS TAB] cephALEXin [Keflex] 500 mg PO QID #30 capsule 12/02/17 Unknown Rx traMADoL [Ultram 50 MG tab] 50 mg PO Q6HR PRN #15 tablet 12/02/17 Unknown Rx Allergies Allergy/AdvReac Type Severity Reaction Status Date / Time ibuprofen Allergy Angioedema Verified 06/29/21 21:57 ketorolac tromethamine Allergy Angioedema Verified 06/29/21 21:57 [From Toradol] metoclopramide HCl Allergy Angioedema Verified 06/29/21 21:57 [From Reglan] ondansetron HCl Allergy Angioedema Verified 06/29/21 21:57 [From Zofran (as hydrochloride)] levofloxacin [From Levaquin] AdvReac Nausea Verified 06/29/21 21:57 ED Review of Systems ROS: Stated complaint: ABDOMINAL AND BACK PAIN/RT LEG PAIN Other details as noted in HPI Constitutional: denies: chills, fever Eyes: denies: eye pain, eye discharge, vision change ENT: denies: ear pain, throat pain Respiratory: denies: cough, shortness of breath, wheezing Cardiovascular: denies: chest pain, palpitations Endocrine: no symptoms reported Gastrointestinal: denies: abdominal pain, nausea, vomiting, diarrhea Genitourinary: denies: urgency, dysuria, discharge Musculoskeletal: back pain (lower), arthralgia (right thigh pain), myalgia. denies: joint swelling Skin: denies: rash, lesions Neurological: denies: headache, weakness, paresthesias Psychiatric: denies: anxiety, depression Hematological/Lymphatic: denies: easy bleeding, easy bruising ED Past Medical Hx - Past Medical History Hx Hypertension: Yes Hx Heart Attack/AMI: No Hx Congestive Heart Failure: No Hx Diabetes: Yes Hx Deep Vein Thrombosis: No Hx Liver Disease: No Hx Renal Disease: Yes Hx Sickle Cell Disease: No Hx Arthritis: No Hx Kidney Stones: Yes Hx Asthma: No Hx COPD: No Hx HIV: No Additional medical history: high cholest - Surgical History Hx Coronary Stent: No Hx Open Heart Surgery: No Hx Pacemaker: No Hx Internal Defibrillator: No Hx Cholecystectomy: No Hx Appendectomy: No Hx Breast Surgery: No Additional Surgical History: stent to kidney. Csection x4 - Social History Smoking Status: Current Every Day Smoker Substance Use Type: None - Medications Home Medications: Home Medications Medication Instructions Recorded Confirmed Last Taken Type Insulin Glargine,Hum.rec.anlog 40 units SQ QHS 05/31/15 12/25/16 05/30/15 History [Lantus Solostar] amLODIPine 10 mg PO DAILY 05/31/15 12/25/16 05/31/15 History lisinopriL [Zestril TAB] 40 mg PO QDAY 05/31/15 12/25/16 05/31/15 History Albuterol Mdi (or & Nicu Only) 2 puff IH QID PRN #1 inhalation 09/02/16 12/25/16 Unknown Rx [ProAir HFA Inhaler] Insulin Regular, Human [HumuLIN R] 30 unit SQ AC 12/25/16 12/25/16 Unknown History cloNIDine [Catapres] 0.2 mg PO BID 12/25/16 12/25/16 Unknown History diphenhydrAMINE [Benadryl CAP] 25 mg PO QHS PRN 12/25/16 12/25/16 Unknown History Benzonatate [Tessalon Perles] 100 mg PO Q8HR #20 capsule 12/26/16 Unknown Rx Sulfamethoxazole/Trimethoprim 1 each PO BID #20 tablet 12/02/17 Unknown Rx [Bactrim DS TAB] cephALEXin [Keflex] 500 mg PO QID #30 capsule 12/02/17 Unknown Rx traMADoL [Ultram 50 MG tab] 50 mg PO Q6HR PRN #15 tablet 12/02/17 Unknown Rx ED Physical Exam - General Limitations: No Limitations General appearance: alert, in no apparent distress - Head Head exam: Present: atraumatic, normocephalic, normal inspection - Eye Eye exam: Present: normal appearance, PERRL, EOMI Pupils: Present: normal accommodation - ENT ENT exam: Present: normal exam, normal orophraynx, mucous membranes moist, TM's normal bilaterally, normal external ear exam - Neck Neck exam: Present: normal inspection, full ROM - Respiratory Respiratory exam: Present: normal lung sounds bilaterally. Absent: respiratory distress, wheezes, rales, rhonchi, chest wall tenderness, accessory muscle use, decreased breath sounds, prolonged expiratory, other - Cardiovascular Cardiovascular Exam: Present: normal rhythm, tachycardia, normal heart sounds. Absent: systolic murmur, diastolic murmur, rubs, gallop - GI/Abdominal GI/Abdominal exam: Present: soft, normal bowel sounds. Absent: tenderness, guarding, rebound, hyperactive bowel sounds, hypoactive bowel sounds, organomegaly - Extremities Exam Extremities exam: Present: normal inspection, full ROM, tenderness (Palpable right thigh tenderness), normal capillary refill - Back Exam Back exam: Present: normal inspection, full ROM, tenderness (Palpable lumbosacral paraspinal musculoskeletal tenderness), muscle spasm, paraspinal tenderness. Absent: CVA tenderness (R), CVA tenderness (L), vertebral tenderness - Neurological Exam Neurological exam: Present: alert, oriented X3, CN II-XII intact, normal gait, reflexes normal - Psychiatric Psychiatric exam: Present: normal affect, normal mood - Skin Skin exam: Present: warm, dry, intact, normal color. Absent: rash ED Course Vital Signs 06/29/21 06/29/21 21:52 23:58 Temperature 99.1 F Pulse Rate 106 H 95 H Respiratory 16 14 Rate Blood Pressure 172/97 Blood Pressure 165/104 [Right] O2 Sat by Pulse 100 100 Oximetry ED Medical Decision Making - Medical Decision Making This is a 41-year-old -[place] female with a history of hypertension, uts-ihwvfrp-iastrahqx diabetes, kidney stones and hyperlipidemia who presented to the ED with complaint of acute onset persistent low back pain that radiates to the right leg, suprapubic pain, urinary frequency and urgency, dysuria for the last 1 week. Patient states that she has been taking antibiotics for recently diagnosed urinary tract infection but the pain in her lower back radiates to the right leg causing significant pain on the right thigh. In the ED, patient is alert and oriented x3 and is not in any distress. Patient was treated for pain in the ED. Urinalysis is unremarkable. Patient was discharged home and advised to continue taking the previously prescribed medications and advised to follow-up with your primary care physician in 5 to 7 days for reevaluation. Patient was advised return to the ED immediately if symptoms get worse. - Differential Diagnosis Chronic back pain; muscle spasm; DVT; muscle strain; UTI Critical care attestation.: If time is entered above; I have spent that time in minutes in the direct care of this critically ill patient, excluding procedure time. ED Disposition Clinical Impression: Spasm of muscle of lower back, Muscle spasm of right lower extremity Chronic low back pain with right-sided sciatica Qualifiers: Back pain laterality: right Qualified Code(s): M54.41 - Lumbago with sciatica, right side Disposition: HOME / SELF CARE / HOMELESS Is pt being admited?: No Does the pt Need Aspirin: No Condition: Stable Instructions: Muscle Cramps and Spasms, [id number], Sciatica, [id number], Muscle Strain, [id number], Chronic Back Pain, [id number] Additional Instructions: Take your medications that were previously prescribed, drink plenty of fluids and follow-up with your primary care physician in 7 to 10 days for reevaluation. Return to the ED immediately if symptoms get worse. Referrals: [facility] [Provider Group] - 3-5 Days Time of Disposition: 01:03 Print Language: PANAMANIAN
== END 2021-06-30 01:30 | disposition home or self-care (01) ==
LOC: ED 21:28
DX: M62.830 Muscle spasm of back (principal); M62.831 Muscle spasm of calf; M54.41 Lumbago with sciatica, right side; I12.9 Hypertensive chronic kidney disease with stage 1 through stage 4 chronic kidney disease, or unspecified chronic kidney disease; E11.22 Type 2 diabetes mellitus with diabetic chronic kidney disease; N18.9 Chronic kidney disease, unspecified; Z87.442 Personal history of urinary calculi; E78.00 Pure hypercholesterolemia, unspecified; Z98.890 Other specified postprocedural states; F17.200 Nicotine dependence, unspecified, uncomplicated; Z88.1 Allergy status to other antibiotic agents; Z88.6 Allergy status to analgesic agent; Z88.8 Allergy status to other drugs, medicaments and biological substances
CPT/HCPCS: 81001; 99283

== ENCOUNTER 2022-04-19 05:47 | Emergency (ER) | payer MEDICAID, OTHER ==
[2022-04-19] MEDS ORDERED: ASPIRIN 325 MG TAB PO ONE (06:20)
[2022-04-19] MEDS ORDERED: NITROGLYCERIN 2% OINT 1 GM TP ONE (06:20)
[2022-04-19] MEDS ORDERED: SODIUM CHLORIDE 0.9% 1000 ML 1,000 ML IV ONE (06:20)
[2022-04-19 07:35] LABS: Basophils % (Auto) 0.4 % (0.0-1.8); Eosinophils # (Auto) 0.2 K/mm3 (0.0-0.4); Eosinophils % (Auto) 2.5 % (0.0-4.3); Lymphocytes # (Auto) 2.3 K/mm3 (1.2-5.4); Lymphocytes % (Auto) 24.6 % (13.4-35.0); Mean Corpuscular HGB Conc 34 % (30-34); Mean Corpuscular Volume 84 fl (79-97); Monocytes # (Auto) 0.6 K/mm3 (0.0-0.8); Monocytes % (Auto) 6.4 % (0.0-7.3); Platelet Count 323 K/mm3 (140-440); Red Blood Count 4.14 M/mm3 (3.65-5.03); Red Cell Distribution Width 13.7 % (13.2-15.2)
[2022-04-19 07:50] LABS: INR 0.83 (0.87-1.13)
[2022-04-19 07:56] LABS: Alanine Aminotransferase 14 units/L (7-56); Albumin 3.6 g/dL (3.9-5); BUN/Creatinine Ratio 17; Blood Urea Nitrogen 27 mg/dL (7-17); Calcium 9.1 mg/dL (8.4-10.2); Hemolysis Index 3
--- NOTE | 2022-04-19 08:39 | XRay Report ---
CHEST 1 VIEW INDICATION / CLINICAL INFORMATION: Chest Pain. COMPARISON: None available. FINDINGS: SUPPORT DEVICES: None. HEART / MEDIASTINUM: No significant abnormality. LUNGS / PLEURA: No significant pulmonary or pleural abnormality. No pneumothorax. ADDITIONAL FINDINGS: No significant additional findings. IMPRESSION: 1. No acute findings. Signer Name: Hayden Garcia MD Signed: 04/19/2022 8:35 AM Workstation Name: [id number]
--- NOTE | 2022-04-19 08:39 | Emergency Department Report ---
ED General Adult HPI - General Chief complaint: Chest Pain Stated complaint: MEDICAL CLEARANCE FOR FDC/CHEST PAIN PUI?: No Time Seen by Provider: 04/19/22 06:20 Source: patient Mode of arrival: Stretcher Limitations: No Limitations - History of Present Illness Initial comments: Brought in by police. Chestpain after being told that she was going to be arrested. -: Gradual, hour(s) Location: chest Radiation: non-radiation Severity scale (0 -10): 8 Worsens with: none Associated Symptoms: chest pain. denies: denies other symptoms, confusion - Related Data Home Medications Medication Instructions Recorded Confirmed Last Taken Insulin Glargine,Hum.rec.anlog 40 units SQ QHS 05/31/15 12/25/16 05/30/15 [Lantus Solostar] amLODIPine 10 mg PO DAILY 05/31/15 12/25/16 05/31/15 lisinopriL [Zestril TAB] 40 mg PO QDAY 05/31/15 12/25/16 05/31/15 Insulin Regular, Human [HumuLIN R] 30 unit SQ AC 12/25/16 12/25/16 Unknown cloNIDine [Catapres] 0.2 mg PO BID 12/25/16 12/25/16 Unknown diphenhydrAMINE [Benadryl CAP] 25 mg PO QHS PRN 12/25/16 12/25/16 Unknown Previous Rx's Medication Instructions Recorded Last Taken Type Albuterol Mdi (or & Nicu Only) 2 puff IH QID PRN #1 inhalation 09/02/16 Unknown Rx [ProAir HFA Inhaler] Benzonatate [Tessalon Perles] 100 mg PO Q8HR #20 capsule 12/26/16 Unknown Rx Sulfamethoxazole/Trimethoprim 1 each PO BID #20 tablet 12/02/17 Unknown Rx [Bactrim DS TAB] cephALEXin [Keflex] 500 mg PO QID #30 capsule 12/02/17 Unknown Rx traMADoL [Ultram 50 MG tab] 50 mg PO Q6HR PRN #15 tablet 12/02/17 Unknown Rx Allergies Allergy/AdvReac Type Severity Reaction Status Date / Time ibuprofen Allergy Angioedema Verified 06/29/21 21:57 ketorolac tromethamine Allergy Angioedema Verified 06/29/21 21:57 [From Toradol] metoclopramide HCl Allergy Angioedema Verified 06/29/21 21:57 [From Reglan] ondansetron HCl Allergy Angioedema Verified 06/29/21 21:57 [From Zofran (as hydrochloride)] levofloxacin [From Levaquin] AdvReac Nausea Verified 06/29/21 21:57 ED Review of Systems ROS: Stated complaint: MEDICAL CLEARANCE FOR FDC/CHEST PAIN Other details as noted in HPI Constitutional: denies: chills, fever Eyes: denies: eye pain, eye discharge, vision change ENT: denies: ear pain, throat pain Respiratory: denies: cough, shortness of breath, wheezing Cardiovascular: denies: chest pain, palpitations Endocrine: no symptoms reported Gastrointestinal: denies: abdominal pain, nausea, diarrhea Genitourinary: denies: urgency, dysuria, discharge Musculoskeletal: denies: back pain, joint swelling, arthralgia Skin: denies: rash, lesions Neurological: denies: headache, weakness, paresthesias Psychiatric: denies: anxiety, depression Hematological/Lymphatic: denies: easy bleeding, easy bruising ED Past Medical Hx - Past Medical History Previous Medical History?: Yes Hx Hypertension: Yes Hx Heart Attack/AMI: No Hx Congestive Heart Failure: No Hx Diabetes: Yes Hx Deep Vein Thrombosis: No Hx Liver Disease: No Hx Renal Disease: Yes Hx Sickle Cell Disease: No Hx Arthritis: Yes (Rheumatoid) Hx Kidney Stones: Yes Hx Asthma: No Hx COPD: No Hx HIV: No Additional medical history: high cholest - Surgical History Past Surgical History?: Yes Hx Coronary Stent: No Hx Open Heart Surgery: No Hx Pacemaker: No Hx Internal Defibrillator: No Hx Cholecystectomy: No Hx Appendectomy: No Hx Breast Surgery: No Additional Surgical History: stent to kidney. Csection x4 - Social History Smoking Status: Never Smoker Substance Use Type: None - Medications Home Medications: Home Medications Medication Instructions Recorded Confirmed Last Taken Type Insulin Glargine,Hum.rec.anlog 40 units SQ QHS 05/31/15 12/25/16 05/30/15 History [Lantus Solostar] amLODIPine 10 mg PO DAILY 05/31/15 12/25/16 05/31/15 History lisinopriL [Zestril TAB] 40 mg PO QDAY 05/31/15 12/25/16 05/31/15 History Albuterol Mdi (or & Nicu Only) 2 puff IH QID PRN #1 inhalation 09/02/16 12/25/16 Unknown Rx [ProAir HFA Inhaler] Insulin Regular, Human [HumuLIN R] 30 unit SQ AC 12/25/16 12/25/16 Unknown History cloNIDine [Catapres] 0.2 mg PO BID 12/25/16 12/25/16 Unknown History diphenhydrAMINE [Benadryl CAP] 25 mg PO QHS PRN 12/25/16 12/25/16 Unknown History Benzonatate [Tessalon Perles] 100 mg PO Q8HR #20 capsule 12/26/16 Unknown Rx Sulfamethoxazole/Trimethoprim 1 each PO BID #20 tablet 12/02/17 Unknown Rx [Bactrim DS TAB] cephALEXin [Keflex] 500 mg PO QID #30 capsule 12/02/17 Unknown Rx traMADoL [Ultram 50 MG tab] 50 mg PO Q6HR PRN #15 tablet 12/02/17 Unknown Rx ED Physical Exam - General Limitations: No Limitations General appearance: alert, in no apparent distress - Head Head exam: Present: atraumatic, normocephalic - Eye Eye exam: Present: normal appearance - ENT ENT exam: Present: mucous membranes moist - Neck Neck exam: Present: normal inspection - Respiratory Respiratory exam: Present: normal lung sounds bilaterally. Absent: respiratory distress - Cardiovascular Cardiovascular Exam: Present: regular rate, normal rhythm. Absent: systolic murmur, diastolic murmur, rubs, gallop - GI/Abdominal GI/Abdominal exam: Present: soft, normal bowel sounds - Extremities Exam Extremities exam: Present: normal inspection - Back Exam Back exam: Present: normal inspection - Neurological Exam Neurological exam: Present: alert, oriented X3 - Psychiatric Psychiatric exam: Present: normal affect, normal mood - Skin Skin exam: Present: warm, dry, intact, normal color. Absent: rash ED Course Vital Signs 04/19/22 04/19/22 04/19/22 05:49 06:30 06:32 Temperature 97.3 F L 98.9 F Pulse Rate 98 H 93 H Respiratory 18 18 Rate Blood Pressure 176/88 Blood Pressure 203/113 [Left] O2 Sat by Pulse 98 99 Oximetry 04/19/22 06:33 Temperature Pulse Rate 93 H Respiratory Rate Blood Pressure Blood Pressure [Left] O2 Sat by Pulse Oximetry ED Medical Decision Making - Lab Data Result diagrams: 04/19/22 06:42 04/19/22 06:42 - EKG Data -: EKG Interpreted by Me EKG shows normal: sinus rhythm Rate: normal - EKG Data Interpretation: nonspecific ST-T wave margie Critical care attestation.: If time is entered above; I have spent that time in minutes in the direct care of this critically ill patient, excluding procedure time. ED Disposition Clinical Impression: Chest pain, Anxiety Disposition: 01 HOME / SELF CARE / HOMELESS Is pt being admited?: No Does the pt Need Aspirin: No Condition: Stable Instructions: Nonspecific Chest Pain, Adult
[2022-04-19 08:47] VITALS: BP 173/84
--- NOTE | 2022-04-20 10:01 | Electrocardiograph Report ---
[facility] Test Date: 2022-04-19 Test Time: 06:05:42 Pat Name: TRELL VIRAMONTES Department: Room: Gender: F Optical Lab Technician: ER : 1980 Requested By: TYRELL MELENDREZ Order Number: [id number] Reading MD: Dong De Jesus Measurements Intervals [place] Rate: 97 P: 26 [place]: 156 QRS: 29 QRSD: 86 T: 136 QT: 357 QTc: 455 Interpretive Statements Sinus rhythm Nonspecific T abnormalities, lateral leads No previous ECG available for comparison Electronically Signed On 04-20-2022 10:01:14 EDT by Dong De Jesus
== END 2022-04-19 09:21 | disposition home or self-care (01) ==
LOC: ED 05:47
DX: R07.9 Chest pain, unspecified (principal); F41.9 Anxiety disorder, unspecified; I12.9 Hypertensive chronic kidney disease with stage 1 through stage 4 chronic kidney disease, or unspecified chronic kidney disease; E11.22 Type 2 diabetes mellitus with diabetic chronic kidney disease; N18.9 Chronic kidney disease, unspecified; M06.9 Rheumatoid arthritis, unspecified; Z87.442 Personal history of urinary calculi; E78.00 Pure hypercholesterolemia, unspecified; Z88.1 Allergy status to other antibiotic agents; Z88.6 Allergy status to analgesic agent; Z88.8 Allergy status to other drugs, medicaments and biological substances
CPT/HCPCS: 36415; 71045; 80053; 82550; 83690; 83880; 84484; 84703; 85025; 85610; 93005; 99284

== ENCOUNTER 2022-05-15 23:07 | Emergency (ER) | payer MEDICAID, OTHER | END 2022-05-16 02:00 | disposition left against medical advice (07) | LOC: ED 23:07 | DX: L02.429 Furuncle of limb, unspecified (principal); Z53.21 Procedure and treatment not carried out due to patient leaving prior to being seen by health care provider ==